=== PATIENT | male | born 1935 | race Caucasian/White ===

== ENCOUNTER 2016-08-31 08:44 | Emergency (ER) | payer MEDICARE, OTHER ==
[~2016-08-31] VITALS: Ht 170.1 cm; Wt 72.6 kg
[~2016-08-31 08:44] MED LIST: ASPIR LOW81 MG PO; AUGMENTIN 875875 MG PO; FISH OIL500 M1 PO; K-TAB20 MEQ PO; MECLIZINE HCL25 M2 PO; MICARDIS HCT PO; NORVASC5 MG PO; SIMVASTATIN20 MG PO; VITAMIN D400 UNI1 PO; VITAMIN E200 UNI2 PO; VITAMINS FOR HA1 CAP PO; XANAX0.25 MG PO
[2016-08-31] MEDS ORDERED: DELTASONE20 M1 PO (10:26)
== END 2016-08-31 11:17 | disposition home or self-care (01) ==
LOC: ED 08:44
DX: R22.0 Localized swelling, mass and lump, head (principal); T47.1X5A Adverse effect of other antacids and anti-gastric-secretion drugs, initial encounter; I10 Essential (primary) hypertension; E78.5 Hyperlipidemia, unspecified; Z79.82 Long term (current) use of aspirin; Z79.899 Other long term (current) drug therapy; Z88.8 Allergy status to other drugs, medicaments and biological substances; Z90.89 Acquired absence of other organs; Y92.9 Unspecified place or not applicable

== ENCOUNTER 2016-09-02 09:53 | Emergency (ER) | payer MEDICARE, OTHER ==
[~2016-09-02] VITALS: Ht 167.6 cm; Wt 63.5 kg
[~2016-09-02 09:53] MED LIST changes: +DELTASONE20 M1 PO
== END 2016-09-02 10:57 | disposition home or self-care (01) ==
LOC: ED 09:53
DX: L50.9 Urticaria, unspecified (principal); R60.0 Localized edema; F17.200 Nicotine dependence, unspecified, uncomplicated; Z88.8 Allergy status to other drugs, medicaments and biological substances; Z79.899 Other long term (current) drug therapy; Z79.82 Long term (current) use of aspirin

== ENCOUNTER 2018-04-03 03:12 | Inpatient (IN) | payer MEDICARE, OTHER ==
[2018-04-03] VITALS (9 sets, daily range): BP systolic 127–181; BP diastolic 54–67
[~2018-04-03] VITALS: Ht 170.1 cm; Wt 77.6 kg
--- NOTE | ~2018-04-03 | EKG ---
[place], [place] ELECTROCARDIOGRAM REPORT NAME: DEVENDRA BANUELOS UNIT #: [id number] ROOM: 515 DOCTOR: TOYNI DRAFT REPORT BIRTHDATE: [address] 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
--- NOTE | ~2018-04-03 | CON ---
[place], [place] REPORT OF CONSULTATION NAME: DEVENDRA BANUELOS UNIT #: [id number] ROOM: 515 DOCTOR: FELIBERTO PITT MD BIRTHDATE: [birth year] DOS: 04/04/2018 CARDIOLOGY CONSULTATION REASON FOR CONSULTATION: Lightheadedness and near-syncope. HISTORY OF PRESENT ILLNESS: The patient is an 82-year-old man who states that he has been lightheaded and near-syncopal for the last few weeks. He actually describes an episode that occurred a few years ago, but the previous echo sounded a lot more like vertigo due to a sinus infection. The current episode appears to involve the change in his vision with blurring of his vision. He then feels like he is lightheaded and could pass out, but he has not yet fallen or lost consciousness. The episodes last several minutes and then resolve spontaneously. There is no associated chest pain or palpitations. He does feel like his blood pressure is "changing" during these episodes. He wondered if his relatively slow heart rate or change in blood pressure could explain the symptoms that he has. He notes that these are worse if he is standing up or walking, but can occur if he is sitting down or even recumbent. He specifically denies that he has vertigo and does not indicate that the symptoms are worse when he first lies down. 8 PAST MEDICAL HISTORY: Includes: 1. Long-term bradycardia. The patient states that he has seen hides soaker in the past for this and has been told to simply avoid medications that slow the heart down. He denies that he has ever been recommended to have a pacemaker. 2. Essential hypertension. 3. Hyperlipidemia. 4. Remote history of vertigo. 5. Long history of anxiety. 6. History of cholecystectomy. MEDICATIONS: Prior to admission; alprazolam 0.25 mg b.i.d. p.r.n., simvastatin 20 mg at bedtime and Micardis HCT one tablet daily. The patient also has a prescription for tamsulosin 0.4 mg daily, but tells me that he rarely uses it. ALLERGIES: He has no known drug allergies. FAMILY HISTORY: The patient's mother of a stroke at age 84. His father of a heart attack at age 71. REVIEW OF SYSTEMS: The patient denies diplopia or loss of vision, but states that during the episodes, his vision becomes blurred. He denies focal weakness. He claims lightheadedness, but denies syncope or falling. He denies orthopnea or PND. He denies fevers, chills, sweats or recent weight change. He denies hemoptysis or hematemesis. He denies change in bowel or bladder habits and denies blood in his stools or urine. He denies heat or cold intolerance and denies polyuria or polydipsia. He denies any skin rashes. [place], [place] REPORT OF CONSULTATION NAME: DEVENDRA BANUELOS UNIT #: [id number] ROOM: 515 DOCTOR: FELIBERTO PITT MD BIRTHDATE: [birth year] SOCIAL HISTORY: The patient does not smoke or use illicit drugs. He drinks alcohol rarely. PHYSICAL EXAMINATION: GENERAL: The patient is well-nourished white male, who is awake, alert and oriented. VITAL SIGNS: Pulse is 59 and regular, blood pressure is 146/68. He is afebrile. Orthostatic blood pressures have been obtained at least twice and have been normal. He weighs 77.6 kg and has a body mass index 26.8. HEENT: Normocephalic and atraumatic. Extraocular muscles are intact. Sclerae are clear. Pupils equal, round and react to light. The oral mucosa is moist. Tongue is midline. NECK: Supple. He has no jugular distention. Carotids are full. There are no bruits. He has no neck or supraclavicular masses and no thyromegaly. LUNGS: Respirations are unlabored. CHEST: Clear to auscultation and percussion. He has no presacral edema or chest wall tenderness. CARDIOVASCULAR: His heart has a regular rhythm. He has a fourth heart sound, but no third heart sound or murmur. The PMI is not displaced. There is no precordial heave, lift or thrill. ABDOMEN: Soft and normally active without masses, organomegaly or bruits. EXTREMITIES: Showed no edema. Peripheral pulses are easily palpated in the feet bilaterally. LABORATORY DATA: His electrocardiogram shows sinus bradycardia, but no acute changes. We did go to the monitor central station, he has had sinus rhythm with sinus bradycardia, but no prolonged pauses and no rapid heartbeats. Echocardiogram shows normal left ventricular size, wall motion and systolic function with ejection fraction of 55%, stage 1 diastolic relaxation abnormalities, mild left atrial enlargement, trace aortic insufficiency, no significant aortic stenosis or other abnormality of valve function noted. Hemoglobin is 14.6, white count 7300, platelet count 262,000. Sodium 141, potassium 3.6, BUN 13, creatinine 0.85. IMPRESSION: 1. Episodic lightheadedness. The patient has a very hard time describing this. He notes that it can occur when he is sitting down or even semi-recumbent even without a change in his head position. It is more frequent when he is standing, however. 2. Bradycardia. The patient has a long history of bradycardia, which does not appear to be clinically significant by monitor thus far. Specifically, he has not had prolonged pauses or any paroxysmal tachycardia on the monitoring specialist. 3. History of hypertension. 4. Remote history of vertigo. 5. History of anxiety. PLAN: We will continue to monitor orthostatic blood pressure changes and [place], [place] REPORT OF CONSULTATION NAME: DEVENDRA BANUELOS UNIT #: [id number] ROOM: [facility] DOCTOR: FLEIBERTO PITT MD BIRTHDATE: [birth year] telemetry monitors. If he shows no prolonged pauses or tachycardia, then he may be discharged to home with a 30-day event recorder. At that point, I would suggest we make arrangements for him to be seen by an office professional to consider tilt table testing, etc. I thank the hospitalist physicians for asking our advice regarding his assessment. FELIBERTO PITT MD CM:CONSTR:REPORT OF CONSULTATION 49 04/05/18821 interface
--- NOTE | ~2018-04-03 | EKG ---
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
--- NOTE | ~2018-04-03 | PR ---
[place], [place] PROGRESS NOTE NAME: DEVENDRA BANUELOS UNIT #: [id number] ROOM: 515 DOCTOR: FELIBERTO PITT MD BIRTHDATE: [birth year] DOS: 04/05/2018 CARDIOLOGY PROGRESS NOTE SUBJECTIVE: The patient was seen at his bedside today, 04/05/2018, for followup of his relative bradycardia and near syncopal episodes. The patient states that he feels well today and has not had any more "spells." I reviewed his monitor strips and recordings from the monitor station. He has had sinus rhythm with mild sinus bradycardia, but no heart rates less than 50 and no prolonged pauses or SVT. The patient has been walking today and feels better. He is anxious for discharge. PHYSICAL EXAMINATION: VITAL SIGNS: Today, his pulse is 67 and regular, blood pressure is 152/58. He is afebrile. He weighs 77.6 kg and has a body mass index 26.8. NECK: Supple. He has no jugular distention. CHEST: Clear. HEART: Has a regular rhythm. EXTREMITIES: Showed no edema. IMPRESSIONS: 1. Episodic near syncopal episodes and lightheadedness. 2. Bradycardia. The patient has a long history of bradycardia, which does not appear to be clinically significant on hospital monitors. He has not had prolonged pauses or any paroxysmal tachycardia. 3. History of hypertension. 4. History of vertigo in the remote past. 5. History of anxiety. PLAN: From a cardiac standpoint, he could be discharged today. We will arrange for him to have a 30-day event recorder sent to his home to monitor his rhythms as an outpatient. We will also arrange for him to have an evaluation by our viner operator for recurrent near syncope and relative bradycardia. If the event recorder does truly shows significant bradycardia, then a pacemaker might be in order. A tilt table study will also probably be obtained as part of his evaluation. He has not had any orthostatic hypotension in the hospital. I thank the hospitalist physicians for asking our advice regarding his care. [place], [place] PROGRESS NOTE NAME: PATRICIA BANUELOSO Pavithra UNIT #: [id number] ROOM: 515 DOCTOR: FELIBERTO PITT MD BIRTHDATE: [birth year] FELIBERTO PITT MD CM:PNOTTO [id number] FELIBERTO PITT MD 04/06/18 0526 interface
--- NOTE | ~2018-04-03 | EKG ---
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
[2018-04-03 03:55] LABS: BASO % 0.3 % (0.0-1.0); EOS # 0.2 10*3/uL (0.0-0.4); EOS % 2.6 % (1.0-4.0); HEMATOCRIT 42.8 % (42.0-52.0); LYMPH # 1.9 10*3/uL (1.3-4.4); LYMPH % 24.7 % (27.0-41.0); MEAN CORPUSCULAR HGB 31.2 pg (27.0-31.0); MEAN PLATELET VOLUME 8.9 fl (9.6-12.3); MONO # 0.7 10*3/uL (0.1-1.0); MONO % 9.7 % (3.0-9.0); NEUT # 4.8 10*3/uL (2.3-7.9); NEUT % 62.4 % (47.0-73.0); PLATELET COUNT AUTOMATED 289 10*3/uL (130-400); RED BLOOD COUNT 4.81 10*6/uL (4.50-5.90); RED CELL DISTRI WIDTH 12.9 % (0-14.5); WHITE BLOOD COUNT 7.6 10*3/uL (4.8-10.8)
[2018-04-03 04:10] LABS: ACT PARTIAL THROMBO TIME 23.4 SECONDS (20.8-31.5)
[2018-04-03 04:11] LABS: BILIRUBIN NEGATIVE (NEGATIVE); BLOOD TRACE-LYSED (NEGATIVE); CLARITY CLEAR (CLEAR); COLOR YELLOW (YELLOW); GLUCOSE NEGATIVE (NEGATIVE); KETONE NEGATIVE (NEGATIVE); LEUKO ESTERASE NEGATIVE (NEGATIVE); NITRITE NEGATIVE (NEGATIVE); SPECIFIC GRAVITY <= 1.005 (1.005-1.030); UROBILINOGEN 0.2 E.U./dl (0.2-1.0)
[2018-04-03 04:16] LABS: ALBUMIN 3.4 gm/dl (3.1-4.5); ALKALINE PHOSPHATASE 78 U/L (45-117); BUN 14 mg/dl (7-24); CHLORIDE 103 mmol/L (98-107); CREATININE 0.83 mg/dL (0.70-1.30); POTASSIUM 3.4 mmol/L (3.5-5.1); SGOT/AST 15 IU/L (3-35); SGPT/ALT 23 U/L (12-78); SODIUM 140 mmol/L (136-145); TOTAL PROTEIN 6.8 gm/dL (6.4-8.2)
[2018-04-03 04:18] LABS: TROPONIN I < 0.015 ng/ml (<0.045)
[2018-04-03 04:21] LABS: BACTERIA TRACE
[2018-04-03] MEDS ORDERED: FLOMAX0.4 MG PO (10:09)
[2018-04-04] VITALS: BP 134/60
[2018-04-04 04:00] VITALS: BP 122/80
[2018-04-04 06:40] LABS: BASO % 0.3 % (0.0-1.0); EOS # 0.2 10*3/uL (0.0-0.4); HEMATOCRIT 42.1 % (42.0-52.0); HEMOGLOBIN 14.6 g/dl (14.0-18.0); LYMPH # 1.7 10*3/uL (1.3-4.4); LYMPH % 22.8 % (27.0-41.0); MEAN CELL VOLUME 90.1 fl (80.0-94.0); MEAN CORPUSCULAR HGB 31.3 pg (27.0-31.0); MEAN CORPUSCULAR HGB CONC 34.7 g/dl (33.0-37.0); MEAN PLATELET VOLUME 9.3 fl (9.6-12.3); MONO # 0.6 10*3/uL (0.1-1.0); MONO % 8.6 % (3.0-9.0); NEUT # 4.8 10*3/uL (2.3-7.9); PLATELET COUNT AUTOMATED 262 10*3/uL (130-400); RED BLOOD COUNT 4.67 10*6/uL (4.50-5.90); RED CELL DISTRI WIDTH 13.1 % (0-14.5); WHITE BLOOD COUNT 7.3 10*3/uL (4.8-10.8)
[2018-04-04 06:59] LABS: ALBUMIN 3.2 gm/dl (3.1-4.5); ALKALINE PHOSPHATASE 78 U/L (45-117); BUN 13 mg/dl (7-24); CHLORIDE 105 mmol/L (98-107); CHOLESTEROL 196 mg/dL (<200); CREATININE 0.85 mg/dL (0.70-1.30); FREE T4 0.93 ng/dl (0.76-1.46); HDL CHOLESTEROL 42 mg/dl (40-60); LDL CHOLESTEROL 134 mg/dL (9-159); PHOSPHOROUS 2.9 mg/dL (2.5-4.9); POTASSIUM 3.6 mmol/L (3.5-5.1); SGOT/AST 15 IU/L (3-35); SGPT/ALT 23 U/L (12-78); SODIUM 141 mmol/L (136-145); TOTAL PROTEIN 6.6 gm/dL (6.4-8.2); TRIGLYCERIDES 101 mg/dl (<150); VLDL CHOLESTEROL 20 mg/dL (6-40)
[2018-04-04 07:43] LABS: VITAMIN D, 25-HYDROXY 24.6 ng/mL (30-100)
[2018-04-04 08:00] VITALS: BP 160/78
[2018-04-04 12:00] VITALS: BP 155/65
[2018-04-04 16:00] VITALS: BP 146/68
[2018-04-04 20:00] VITALS: BP 156/65
[2018-04-05] VITALS: BP 119/51
[2018-04-05 08:00] VITALS: BP 164/68
[2018-04-05 12:00] VITALS: BP 152/58
[2018-04-05] MEDS ORDERED: VITAMIN D32000 UNI1 PO (15:34)
[2018-04-05 16:00] VITALS: BP 162/62
[2018-10-07] MEDS ORDERED: AMOXICILLIN875 MG PO (09:27)
== END 2018-04-05 16:58 | disposition home or self-care (01) | DRG 309 ==
LOC: ED 03:12 → 5E 05:59 → EDHOLD 05:59 → 5E 08:07
PROVIDERS: Emergency Medicine Emergency Medical Services; Family Medicine; ADMIT Internal Medicine
DX: R00.1 Bradycardia, unspecified (principal); I16.1 Hypertensive emergency; E44.0 Moderate protein-calorie malnutrition; E87.6 Hypokalemia; K64.9 Unspecified hemorrhoids; R42 Dizziness and giddiness; N40.0 Benign prostatic hyperplasia without lower urinary tract symptoms; H26.9 Unspecified cataract; I35.1 Nonrheumatic aortic (valve) insufficiency; J30.2 Other seasonal allergic rhinitis; I10 Essential (primary) hypertension; F41.1 Generalized anxiety disorder; E78.5 Hyperlipidemia, unspecified; E67.8 Other specified hyperalimentation; E55.9 Vitamin D deficiency, unspecified; Z88.8 Allergy status to other drugs, medicaments and biological substances; Z82.3 Family history of stroke; Z82.49 Family history of ischemic heart disease and other diseases of the circulatory system; Z90.49 Acquired absence of other specified parts of digestive tract; Z79.899 Other long term (current) drug therapy; Z68.26 Body mass index [BMI] 26.0-26.9, adult

== ENCOUNTER → 2018-10-09 | Day surgery (SDC) | payer MEDICARE, OTHER ==
[~2018-10-09] VITALS: Ht 170.1 cm; Wt 75.3 kg
[~2018-10-09] MED LIST changes: +AMOXICILLIN875 MG PO; +FLOMAX0.4 MG PO; +VITAMIN D32000 UNI1 PO
--- NOTE | ~2018-10-09 | O ---
[place], [place] OPERATIVE NOTE NAME: DEVENDRA BANUELOS UNIT #: [id number] ROOM: DOCTOR: MARCELINA BERNSTEIN MD BIRTHDATE: [birth year] DOS: GASTROENDOSCOPIC REPORT This is an 83-year-old patient who presented with chief complaint of change in bowel habit, undergoing investigation. PAST MEDICAL HISTORY: Associated with hypertension, hyperlipidemia. PAST SURGICAL HISTORY: Cholecystectomy, hemorrhoidectomy. ALLERGIES: No known to medication. FAMILY HISTORY: Noncontributory. PROCEDURE: Today's procedure part of investigation is colonoscopy. Piecemeal polypectomy. PREMEDICATION: Propofol. SCOPE: Olympus forward-viewing colonoscope 10L video. REPORT: After putting the patient in left lateral position and application of lubricant to the scope, the scope was introduced. Thereafter, under direct visualization, advanced through the length of colon without difficulty. Base of the cecum explored, appendiceal site and ileocecal valve were identified. Sessile polypoid lesion from the sigmoid colon. Piecemeal polypectomy was removed. The patient extubated, tolerated the procedure well. IMPRESSION: Polypectomy, sessile, status post piecemeal polypectomy. PLAN: High fiber food diet. ACTIVITY: Ad gertrudis. FOLLOWUP: As outpatient. [place], [place] OPERATIVE NOTE NAME: DEVENDRA BANUELOS UNIT #: [id number] ROOM: DOCTOR: MARCELINA BERNSTEIN MD BIRTHDATE: [birth year] MARCELINA BERNSTEIN MD CM:OPRECORD:OPERATIVE NOTE [id number] MARCELINA BERNSTEIN MD 11/01/18 1234 interface
--- NOTE | ~2018-10-09 | O ---
[place], [place] OPERATIVE NOTE NAME: DEVENDRA BANUELOS UNIT #: [id number] ROOM: DOCTOR: AMANDEEP JAIN,MARCELINA BIRTHDATE: [birth year] DOS: INDICATION: The patient has presented with dyspepsia, undergoing investigation. Today's procedure part of investigation is panendoscopy plus biopsy. PREMEDICATION: Propofol. SCOPE: Olympus forward-viewing gastroscope Q10 video. DESCRIPTION OF PROCEDURE: After putting the patient in left lateral position and application of lubricant to the scope, the scope was introduced. Thereafter, under direct visualization, advanced through the length of esophagus into gastric pouch into duodenum. Antral ulcer was biopsied. Duodenal bulb, second and third part within normal limit. The patient extubated, tolerated the procedure well. IMPRESSION: Gastritis, antral ulcer, status post biopsy. PLAN AND DISCUSSION: Protonix 40 mg 1 every day. Follow up as outpatient. Awaiting H. pylori results. MARCELINA BERNSTEIN MD CM:OPRECORD:OPERATIVE NOTE 1143 1238 MARCELINA BERNSTEIN MD 11/01/18 1237 interface
--- NOTE | ~2018-10-09 | O ---
[place], [place] OPERATIVE NOTE NAME: DEVENDRA BANUELOS UNIT #: [id number] ROOM: DOCTOR: MARCELINA BERNSTEIN MD BIRTHDATE: [birth year] DOS: 10/09/2018 GASTROENDOSCOPIC REPORT INDICATIONS: This is an 83-year-old patient who has presented with chief complaint of change in bowel habit, undergoing investigation. PAST MEDICAL HISTORY: Associated with history of hypertension, hyperlipidemia. PAST SURGICAL HISTORY: Hemorrhoid and cholecystectomy. DICTATION ENDS HERE. MARCELINA BERNSTEIN MD CM:OPRECORD:OPERATIVE NOTE [id number] MARCELINA BERNSTEIN MD 10/09/18 1546 interface
[2018-10-09 08:00] VITALS: BP 174/74
[2018-10-09 09:40] VITALS: BP 146/64
[2018-10-09 09:54] VITALS: BP 161/70
[2018-10-09 10:10] VITALS: BP 157/69
== END | disposition home or self-care (01) ==
LOC: SDC 10-04 12:30
DX: K63.5 Polyp of colon (principal); K59.00 Constipation, unspecified; K29.60 Other gastritis without bleeding; I10 Essential (primary) hypertension; E78.5 Hyperlipidemia, unspecified; F41.9 Anxiety disorder, unspecified; F32.9 Major depressive disorder, single episode, unspecified; Z79.899 Other long term (current) drug therapy; Z98.890 Other specified postprocedural states; Z90.49 Acquired absence of other specified parts of digestive tract

== ENCOUNTER 2019-12-09 15:25 | Emergency (ER) | payer MEDICARE, OTHER ==
[~2019-12-09] VITALS: Wt 77.1 kg
[2019-12-09 16:20] LABS: BASO % 0.5 % (0.0-1.0); EOS # 0.1 10*3/uL (0.0-0.4); EOS % 1.5 % (1.0-4.0); HEMATOCRIT 43.1 % (42.0-52.0); LYMPH # 1.4 10*3/uL (1.3-4.4); LYMPH % 16.7 % (27.0-41.0); MEAN CELL VOLUME 92.5 fl (80.0-94.0); MEAN CORPUSCULAR HGB 31.3 pg (27.0-31.0); MEAN CORPUSCULAR HGB CONC 33.9 g/dl (33.0-37.0); MONO # 0.7 10*3/uL (0.1-1.0); MONO % 9.1 % (3.0-9.0); NEUT # 5.8 10*3/uL (2.3-7.9); NEUT % 71.8 % (47.0-73.0); PLATELET COUNT AUTOMATED 296 10*3/uL (130-400); RED BLOOD COUNT 4.66 10*6/uL (4.50-5.90); RED CELL DISTRI WIDTH 12.9 % (0-14.5); WHITE BLOOD COUNT 8.1 10*3/uL (4.8-10.8)
[2019-12-09 16:35] LABS: ACT PARTIAL THROMBO TIME 25.8 SECONDS (20.0-32.1)
[2019-12-09 16:38] LABS: ALBUMIN 3.3 gm/dl (3.1-4.5); ALKALINE PHOSPHATASE 76 U/L (45-117); BUN 13 mg/dl (7-24); CHLORIDE 105 mmol/L (98-107); CREATININE 0.83 mg/dL (0.70-1.30); POTASSIUM 3.5 mmol/L (3.5-5.1); SGOT/AST 20 IU/L (3-35); SGPT/ALT 36 U/L (12-78); SODIUM 139 mmol/L (136-145); TOTAL PROTEIN 6.9 gm/dL (6.4-8.2)
[2019-12-09 16:39] LABS: TROPONIN I < 0.015 ng/ml (<0.045)
[2019-12-09 16:45] LABS: BILIRUBIN Negative (Negative); BLOOD Negative (Negative); CLARITY Clear (Clear); COLOR Yellow (Yellow); GLUCOSE Negative (Negative); KETONE Negative (Negative); LEUKO ESTERASE Trace (Negative); NITRITE Negative (Negative); PH 6.5 (4.5-8.0); SPECIFIC GRAVITY 1.015 (1.001-1.030)
[2019-12-09 17:00] LABS: WBC 0-2 wbc/hpf (0-5)
== END 2019-12-09 17:33 | disposition home or self-care (01) ==
LOC: ED 15:25
PROVIDERS: Emergency Medicine
DX: M79.651 Pain in right thigh (principal); M79.652 Pain in left thigh; F41.9 Anxiety disorder, unspecified; I10 Essential (primary) hypertension; E78.5 Hyperlipidemia, unspecified; Z79.899 Other long term (current) drug therapy

== ENCOUNTER → 2020-03-01 | Outpatient (CLI) | payer MEDICARE, OTHER | END | disposition home or self-care (01) | LOC: COVID19 11:06 | PROVIDERS: ATTEND Family Medicine | DX: Z20.822 Contact with and (suspected) exposure to COVID-19 (principal) ==

== ENCOUNTER 2020-04-09 22:31 | Emergency (ER) | payer MEDICARE, OTHER ==
[2020-04-09 23:23] LABS: BASO % 0.2 % (0.0-1.0); EOS # 0.3 10*3/uL (0.0-0.4); EOS % 2.5 % (1.0-4.0); HEMATOCRIT 42.5 % (42.0-52.0); LYMPH # 1.6 10*3/uL (1.3-4.4); LYMPH % 14.4 % (27.0-41.0); MEAN CORPUSCULAR HGB 30.7 pg (27.0-31.0); MEAN CORPUSCULAR HGB CONC 34.1 g/dl (33.0-37.0); MONO % 9.4 % (3.0-9.0); NEUT # 7.9 10*3/uL (2.3-7.9); NEUT % 73.2 % (47.0-73.0); PLATELET COUNT AUTOMATED 294 10*3/uL (130-400); RED BLOOD COUNT 4.72 10*6/uL (4.50-5.90); RED CELL DISTRI WIDTH 12.7 % (0-14.5); WHITE BLOOD COUNT 10.8 10*3/uL (4.8-10.8)
[2020-04-09 23:44] LABS: ALBUMIN 3.2 gm/dl (3.1-4.5); ALKALINE PHOSPHATASE 91 U/L (45-117); BUN 16 mg/dl (7-24); CHLORIDE 103 mmol/L (98-107); CREATININE 0.98 mg/dL (0.70-1.30); SGOT/AST 16 IU/L (3-35); SGPT/ALT 31 U/L (12-78); SODIUM 136 mmol/L (136-145)
== END 2020-04-10 00:20 | disposition home or self-care (01) ==
LOC: ED 22:31
PROVIDERS: Internal Medicine
DX: B34.9 Viral infection, unspecified (principal); R79.82 Elevated C-reactive protein (CRP); E87.6 Hypokalemia; Z79.899 Other long term (current) drug therapy; Z20.822 Contact with and (suspected) exposure to COVID-19

== ENCOUNTER 2020-09-12 11:51 | Emergency (ER) | payer MEDICARE, OTHER ==
[~2020-09-12] VITALS: Ht 170.1 cm; Wt 74.8 kg
[2020-09-12 14:10] LABS: BASO % 0.3 % (0.0-1.0); EOS # 0.1 10*3/uL (0.0-0.4); EOS % 1.8 % (1.0-4.0); HEMATOCRIT 41.7 % (42.0-52.0); LYMPH # 1.3 10*3/uL (1.3-4.4); LYMPH % 17.2 % (27.0-41.0); MEAN CELL VOLUME 90.5 fl (80.0-94.0); MEAN CORPUSCULAR HGB 30.6 pg (27.0-31.0); MEAN CORPUSCULAR HGB CONC 33.8 g/dl (33.0-37.0); MEAN PLATELET VOLUME 8.8 fl (9.6-12.3); MONO # 1.1 10*3/uL (0.1-1.0); MONO % 13.7 % (3.0-9.0); NEUT # 5.2 10*3/uL (2.3-7.9); NEUT % 66.6 % (47.0-73.0); PLATELET COUNT AUTOMATED 303 10*3/uL (130-400); RED BLOOD COUNT 4.61 10*6/uL (4.50-5.90); RED CELL DISTRI WIDTH 12.8 % (0-14.5); WHITE BLOOD COUNT 7.8 10*3/uL (4.8-10.8)
[2020-09-12 14:30] LABS: ALBUMIN 3.2 gm/dl (3.1-4.5); ALKALINE PHOSPHATASE 75 U/L (45-117); BUN 17 mg/dl (7-24); CHLORIDE 104 mmol/L (98-107); CREATININE 0.74 mg/dL (0.70-1.30); POTASSIUM 3.5 mmol/L (3.5-5.1); SGOT/AST 18 IU/L (3-35); SGPT/ALT 27 U/L (12-78); SODIUM 135 mmol/L (136-145)
[2020-09-12] MEDS ORDERED: CEPHALEXIN500 M1 PO (15:51)
[2020-09-12] MEDS ORDERED: HYDROCODONE-AC1 EAC1 PO (15:51)
[2020-09-12] MEDS ORDERED: INDOMETHACIN25 M1 PO (15:51)
== END 2020-09-12 16:02 | disposition home or self-care (01) ==
LOC: ED 11:51
PROVIDERS: Physician Assistant
DX: M10.041 Idiopathic gout, right hand (principal); Z79.899 Other long term (current) drug therapy; Z90.49 Acquired absence of other specified parts of digestive tract

== ENCOUNTER 2022-10-15 19:56 | Emergency (ER) | payer MEDICARE, BC ==
[~2022-10-15] VITALS: Ht 170.1 cm; Wt 74.8 kg
[~2022-10-15 19:56] MED LIST changes: +CEPHALEXIN500 M1 PO; +HYDROCODONE-AC1 EAC1 PO; +INDOMETHACIN25 M1 PO
[2022-10-15 20:16] LABS: BASO % 0.4 % (0.0-1.0); EOS # 0.2 10*3/uL (0.0-0.4); EOS % 2.7 % (1.0-4.0); HEMATOCRIT 42.5 % (42.0-52.0); LYMPH % 23.7 % (27.0-41.0); MEAN CELL VOLUME 89.7 fl (80.0-94.0); MEAN CORPUSCULAR HGB 31.2 pg (27.0-31.0); MEAN CORPUSCULAR HGB CONC 34.8 g/dl (33.0-37.0); MEAN PLATELET VOLUME 8.6 fl (9.6-12.3); MONO # 0.9 10*3/uL (0.1-1.0); MONO % 11.2 % (3.0-9.0); NEUT # 5.2 10*3/uL (2.3-7.9); NEUT % 61.8 % (47.0-73.0); PLATELET COUNT AUTOMATED 291 10*3/uL (130-400); RED BLOOD COUNT 4.74 10*6/uL (4.50-5.90); RED CELL DISTRI WIDTH 12.5 % (0-14.5); WHITE BLOOD COUNT 8.4 10*3/uL (4.8-10.8)
[2022-10-15 20:51] LABS: ALKALINE PHOSPHATASE 75 U/L (46-116); BUN 14 mg/dl (9-23); CHLORIDE 104 mmol/L (98-107); SGPT/ALT 20 U/L (10-49); TOTAL PROTEIN 6.5 gm/dL (6.0-8.0)
[2022-10-15 21:01] LABS: BILIRUBIN Negative (Negative); BLOOD Negative (Negative); CLARITY Clear (Clear); COLOR Yellow (Yellow); GLUCOSE Negative (Negative); KETONE Negative (Negative); LEUKO ESTERASE Negative (Negative); NITRITE Negative (Negative); PH 6.5 (4.5-8.0)
[2022-10-15 21:11] LABS: EPITHELIAL CELLS 0-2; RBC 0-2 rbc/hpf (0-2); WBC 0-2 wbc/hpf (0-5)
== END 2022-10-15 21:36 | disposition home or self-care (01) ==
LOC: ED 19:56
PROVIDERS: Internal Medicine
DX: I10 Essential (primary) hypertension (principal); E87.6 Hypokalemia; E44.1 Mild protein-calorie malnutrition; Z68.1 Body mass index [BMI] 19.9 or less, adult; Z90.49 Acquired absence of other specified parts of digestive tract; Z98.890 Other specified postprocedural states; R53.1 Weakness